=== PATIENT | female | born 1960 ===

== ENCOUNTER 2024-07-07 08:05 | Day surgery (SDC) | payer OTHER ==
[2024-07-02 10:27] LABS: PH,URINE 7.5 (5.0-8.0); URINE APPEARANCE Clear; URINE BILIRRUBIN Negative (NEGATIVE); URINE BLOOD Negative; URINE COLOR Yellow; URINE GLUCOSE Negative (NEGATIVE); URINE KETONE Negative (NEGATIVE); URINE LEUKOCYTE Negative; URINE NITRATE Negative; URINE PROTEIN Negative (NEGATIVE); URINE UROBILINOGEN 0.2 E.U./dl
[2024-07-02 10:38] LABS: HEMATOCRIT 41.5 % (36.0-45.00); HEMOGLOBIN 14.2 g/dL (12.0-15.00); MEAN CELL VOLUME 90.4 fL (80.00-100.00); MEAN CORPUSCULAR HEMOGLOBIN 30.9 pg (27.00-32.0); MEAN CORPUSCULAR HGB CONC 34.2 g/dl (32.0-36.0); PLATELET COUNT 177 K/uL (150-450); RED CELL DISTRIBUTION WIDTH 14.4 % (11.5-14.5)
[2024-07-02 10:38] LABS: URINE BACTERIA 1.2 uL (0.0-1933); URINE EPITHELIAL CELLS 0.4 uL (0.0-38.8); URINE WBC 0.1 uL (0.0-23.2)
[2024-07-02 11:06] LABS: INR 0.99; PARTIAL THROMBOPLASTIN TIME 27.5 SECONDS (22.0-34.0); PROTHROMBIN TIME 10.8 SECONDS (9.0-11.5)
[2024-07-02 11:07] LABS: BILIRUBIN TOTAL 0.94 mg/dL (0.3-1.2); CALCIUM 9.7 mg/dL (8.5-10.1); CREATININE SERUM 0.8 mg/dL (0.55-1.02); GFR 71.99; GLOBULINA 3.1 G/DL (2.4-3.5); POTASSIUM 4.52 mEq/L (3.5-5.1); TOTAL PROTEIN 7.1 gm/dL (6.4-8.2)
[~2024-07-07 08:05] MED LIST: ACID REDUCER20 M1 PO; ANASTROZOLE1 MG PO; PAXIL20 MG PO
[2024-07-07] MEDS ORDERED: CEFAZOLIN SODIUM 1,000 MG VIAL ONE ×2 (12:38→16:08)
[2024-07-07] MEDS ORDERED: LIDOCAINE HCL 1% 20 ML VIAL IJ ONE ×2 (13:52→14:46)
[2024-07-07] MEDS ORDERED: HEPARIN SODIUM,PORCINE/PF 100 UNIT/ML SYRINGE IV ONE (13:53)
[2024-07-07] MEDS ORDERED: FAMOTIDINE/PF 20 MG/10 ML SYRINGE IV SCH (15:45)
[2024-07-07] MEDS ORDERED: CEFAZOLIN SODIUM 1,000 MG VIAL IV SCH (15:45)
[2024-07-07] MEDS ORDERED: FAMOTIDINE/PF 20 MG/2 ML VIAL ONE (16:08)
== END 2024-07-07 17:20 | disposition home or self-care (01) ==
LOC: CIR.AMB 08:05
PROVIDERS: ATTEND Specialist
DX: C50.311 Malignant neoplasm of lower-inner quadrant of right female breast (principal)
CPT/HCPCS: 36561; C1751

== ENCOUNTER → 2024-10-30 | Day surgery (SDC) | payer OTHER ==
[2024-10-28 12:58] VITALS: BP 127/83
[~2024-10-30] VITALS: Ht 165.1 cm; Wt 65.8 kg
[~2024-10-30] MED LIST changes: +BUPIVACAINE HCL 30 ML VIAL IJ ONE; +CEFAZOLIN SODIUM 1,000 MG VIAL IV ONE; +CLINDAMYCIN PHOSPHATE 150 MG/ML (900mg) IV ONE; +GENTAMICIN SULFATE 40 MG/ML VIAL IR ONE; +HEPARIN SODIUM,PORCINE 5,000 UNITS/ML VIAL SUBCUTANEO SCH; +NAC600 MG PO; +OMEPRAZOLE20 M2 PO; +POVIDONE-IODINE 118 ML BOTT TOP ONE; +POVIDONE-IODINE SCRUB 118 ML BOTT TOP ONE; +TRANEXAMIC ACID 100MG/1ML (1000MG) AMPUL IV ONE; +VITAMIN C1000 MG
== END | disposition home or self-care (01) ==
LOC: CIR.AMB 10-28 15:15 → ADM 10-28 15:15 → CIR.AMB 10-29 15:15
PROVIDERS: ATTEND Surgery
DX: C50.311 Malignant neoplasm of lower-inner quadrant of right female breast (principal); C50.212 Malignant neoplasm of upper-inner quadrant of left female breast; Z90.11 Acquired absence of right breast and nipple; N65.1 Disproportion of reconstructed breast; R59.0 Localized enlarged lymph nodes